=== PATIENT | male | born 1945 | race Caucasian/White ===

== ENCOUNTER 2017-08-22 10:54 | Emergency (ER) | payer MEDICARE ==
--- NOTE | 2017-08-22 12:14 | RAD ---
RIGHT FOOT 3 VIEWS: Date: 08/22/17 HISTORY: Right foot injury. FINDINGS: There are arthritic changes of the first metatarsophalangeal joint. There is soft tissue swelling on the dorsum of the foot. I do not see any signs of any underlying fracture. IMPRESSION: No evidence of fracture. POS: [facility]
== END 2017-08-22 11:31 | disposition home or self-care (01) ==
LOC: BURERS 10:54
DX: S90.31XA Contusion of right foot, initial encounter (principal); E78.5 Hyperlipidemia, unspecified; I10 Essential (primary) hypertension; Z79.899 Other long term (current) drug therapy; W20.8XXA Other cause of strike by thrown, projected or falling object, initial encounter